=== PATIENT | female | born 1945 | race Caucasian/White ===

== ENCOUNTER → 2017-05-29 | Outpatient (CLI) | payer OTHER, MEDICARE ==
[~2017-05-29] MED LIST: ATIVAN0.5 MG PO; FAMCICLOVIR500 MG PO; IBUPROFEN 600600 M1 PO; LANOXIN 0.250.25 M1 PO; LYRICA 50 MG50 MG PO; NORCO 5-325 TA1 EACH PO; PERCOCET 5-3251 EACH PO; PROTONIX40 M2 PO; SYNTHROID50 MCG PO; SYNTHROID75 MCG PO; TIMOLOL GL0.5 %/5 M1 OP; TOPROL XL25 MG PO; VALIUM5 MG PO
== END ==
LOC: RAD 12:48
DX: Z12.31 Encounter for screening mammogram for malignant neoplasm of breast (principal)